=== PATIENT | male | born 1985 | race Caucasian/White ===

== ENCOUNTER 2018-10-04 08:07 | Emergency (ER) | payer OTHER ==
[~2018-10-04] VITALS: Ht 182.9 cm; Wt 107.0 kg
[2018-10-04] MEDS ORDERED: acetaminophen 325mg tablet PO ONE (08:30)
[2018-10-04 09:42] VITALS: BP 159/89
== END 2018-10-04 10:05 | disposition home or self-care (01) ==
LOC: ER 08:07
DX: S06.0X0A Concussion without loss of consciousness, initial encounter (principal); S00.03XA Contusion of scalp, initial encounter; R11.2 Nausea with vomiting, unspecified; W20.8XXA Other cause of strike by thrown, projected or falling object, initial encounter; Y93.89 Activity, other specified; Y92.89 Other specified places as the place of occurrence of the external cause; Y99.0 Civilian activity done for income or pay
CPT/HCPCS: 70450; 99284

== ENCOUNTER 2023-03-01 07:45 | Emergency (ER) | payer MEDICAID, OTHER ==
[~2023-03-01] VITALS: Ht 182.9 cm; Wt 122.7 kg
[~2023-03-01 07:45] MED LIST: OMEP20CA15 PO; PRAV20TA4 PO
[2023-03-01] MEDS ORDERED: famotidine/PF 10 mg/ml inj IV ONE (08:40)
[2023-03-01] MEDS ORDERED: normal saline 1000ML IV soln IVB ONE ×2 (08:40→09:50)
[2023-03-01] MEDS ORDERED: metoclopramide 5 mg/ml inj IV ONE (08:40)
[2023-03-01 08:46] LABS: BASOPHILS # (AUTO) 0.1 X10'3 (0-0.2); BASOPHILS % (AUTO) 0.4 % (0-1); EOSINOPHILS % (AUTO) 0.1 % (0-6); LYMPHOCYTES # (AUTO) 0.8 X10'3 (1.1-4.8); LYMPHOCYTES % (AUTO) 4.6 % (21-51); MEAN CORPUSCULAR HEMOGLOBIN 29.7 PG (27.0-31.0); MEAN CORPUSCULAR VOLUME 83.1 FL (78-98); MEAN PLATELET VOLUME 7.5 FL (7.4-10.4); MONOCYTES # (AUTO) 1.2 X10'3 (0-0.9); MONOCYTES % (AUTO) 6.7 % (2-12); NEUTROPHILS # (AUTO) 16.4 X10'3 (1.8-7.7); NEUTROPHILS % (AUTO) 88.2 % (42-75); PLATELET COUNT 255 X10'3 (140-440); RED BLOOD COUNT 5.44 X10'6 (4.70-6.10); RED CELL DISTRIBUTION WIDTH 15.2 % (11.5-14.5); WHITE BLOOD COUNT 18.6 X10'3 (4.5-11.0)
[2023-03-01 08:55] LABS: TOTAL CARBON DIOXIDE 25.2 MMOL/L (24-32)
[2023-03-01 09:05] LABS: HEMATOCRIT 45.5 % (42.0-52.0); MEAN CORPUSCULAR HGB CONC 35.1 g/dL (33.0-36.5)
[2023-03-01 09:43] LABS: GLUCOSE 133 MG/DL (70-104); POTASSIUM 4.2 MMOL/L (3.5-5.1)
[2023-03-01] MEDS ORDERED: ketorolac trometh. 30mg/ml inj. IV ONE (09:50)
[2023-03-01] MEDS ORDERED: morphine 4 MG/ML inj SYRINge IV ONE (09:50)
[2023-03-01 09:58] LABS: ALANINE AMINOTRANSFERASE 39 U/L (12-78); ALBUMIN 4.4 G/DL (3.4-5.0); ALKALINE PHOSPHATASE 72 IU/L (46-116); ANION GAP 8 (8-16); ASPARTATE AMINO TRANSFERASE 29 U/L (10-37); BLOOD UREA NITROGEN 12 MG/DL (7-18); BUN/CREATININE RATIO 10.5 (10.0-20.0); CHLORIDE 98 MMOL/L (99-107); CREATININE 1.14 MG/DL (0.60-1.10); SODIUM 131 MMOL/L (135-145); TOTAL PROTEIN 8.8 G/DL (6.4-8.2); eGFR 72 ML/MIN
[2023-03-01 10:04] LABS: CALCIUM 9.5 MG/DL (8.5-10.1)
[2023-03-01 10:21] LABS: LIPASE 2793 U/L (73-393)
[2023-03-01] MEDS ORDERED: OXYC-145 PO (11:10)
[2023-03-01] MEDS ORDERED: ONDA4TAB12 PO (11:10)
[2023-03-01] MEDS ORDERED: oxyCODONE/APAP 5-325mg tablet PO ONE (11:10)
[2023-03-01 11:37] LABS: COLOR,URINE YELLOW (Yellow); GLUCOSE, URINE NEGATIVE (Neg); KETONES,URINE NEGATIVE (Neg); LEUKOCYTE ESTERASE ,URINE SMALL (Neg); NITRITES, URINE NEGATIVE (Neg); OCCULT BLOOD,URINE SMALL (Neg); PROTEIN,URINE 30 mg/dl (Neg); UROBILINOGEN,URINE 0.2 E.U/dL (0.2-1.0)
[2023-03-01 11:41] LABS: CLARITY,URINE SLIGHTLY CLOUDY (Clear); UA COLLECTION TYPE CLN CATCH MIDSTREAM
[2023-03-01 11:42] LABS: WBC,URINE 50-100 /HPF (0-4)
[2023-03-01 11:43] LABS: BACTERIA,URINE 4+ /HPF (Neg); MUCUS STRANDS FEW /LPF (Neg); RBC,URINE NONE SEEN /HPF (0-2); SQUAMOUS EPITHELIAL CELL,UR FEW /LPF (FEW)
[2023-03-01 12:00] VITALS: BP 150/99
== END 2023-03-01 13:05 | disposition home or self-care (01) ==
LOC: ER 07:46
DX: K85.90 Acute pancreatitis without necrosis or infection, unspecified (principal); K21.9 Gastro-esophageal reflux disease without esophagitis; F12.10 Cannabis abuse, uncomplicated; Z79.899 Other long term (current) drug therapy
CPT/HCPCS: 36415; 74176; 80053; 81001; 83690; 85025; 87088; 87186; 96361; 96374; 96375; 96376; 99285; J1885; J2270; J2765; J3490; J7030; 87077